=== PATIENT | male | born 1945 | race Caucasian/White ===

== ENCOUNTER 2016-05-03 21:14 | Emergency (ER) | payer OTHER | END 2016-05-03 22:25 | disposition home or self-care (01) | DX: R33.9 Retention of urine, unspecified (principal); R31.0 Gross hematuria; Z98.890 Other specified postprocedural states ==

== ENCOUNTER 2016-05-08 | Emergency (ER) | payer OTHER | END 2016-05-08 17:30 | disposition home or self-care (01) ==

== ENCOUNTER 2016-12-06 13:34 | Emergency (ER) | payer OTHER ==
[2016-12-06 13:47] VITALS: BP 129/87
[2016-12-06] MEDS ORDERED: predniSONE 20 MG TABLET PO STA (14:04)
--- NOTE | 2016-12-06 14:07 | ED Physician Documentation ---
PD HPI SKIN - Stated complaint Stated Complaint: RASH - Chief complaint Chief Complaint: Wound - History obtained from History obtained from: Patient - History of Present Illness Timing - onset: How many days ago (2) Timing - duration: Days (2) Timing - details: Gradual onset Pain level max: 0 Pain level now: 0 Location: Bodywide Quality / character: Itchy, Raised, Other (erythematous) Improved by: Benadryl Worsened by (comment): COMMENT (nothing) Associated symptoms: No: Fever, Myalgias, Joint pain, Headache, Facial swelling , Dyspnea, Abd pain, N/V/D, Urinary sx Contributing factors: Unknown (had TURP 3 days ago, now diffuse rash) Review of Systems Constitutional: denies: Fever, Chills Cardiac: denies: Chest pain / pressure Respiratory: denies: Dyspnea, Cough, Hemoptysis, Wheezing GI: denies: Abdominal Pain, Nausea, Vomiting, Diarrhea Musculoskeletal: denies: Neck pain, Back pain Neurologic: denies: Headache PD PAST MEDICAL HISTORY - Past Medical History Cardiovascular: Hypertension, High cholesterol, Other : Benign prostate hypertrophy, Retention Psych: Depression, Anxiety - Past Surgical History Past Surgical History: Yes /[employer]OUN[employer]: Other (TURP) - Present Medications Home Medications: Ambulatory Orders Medication Instructions Recorded Confirmed Apixaban [Eliquis] 5 mg PO DAILY 12/06/16 12/06/16 Atorvastatin [Lipitor] 10 mg PO DAILY 12/06/16 12/06/16 Cetirizine [ZyrTEC] 10 mg PO DAILY 12/06/16 12/06/16 DULoxetine [Cymbalta] 60 mg PO DAILY 12/06/16 12/06/16 Metoprolol Tartrate 50 mg PO DAILY 12/06/16 12/06/16 Omeprazole [PriLOSEC] 20 mg PO DAILY 12/06/16 12/06/16 Prednisone 60 mg PO DAILY #12 tablet 12/06/16 Sennosides [Senna] 1 tab PO DAILY 12/06/16 12/06/16 diphenhydrAMINE [Benadryl] 25 mg PO DAILY 12/06/16 12/06/16 oxyCODONE [Roxicodone] 5 mg PO DAILY 12/06/16 12/06/16 - Allergies Allergies/Adverse Reactions: Allergies Allergy/AdvReac Type Severity Reaction Status Date / Time gabapentin Allergy Unknown Verified 05/03/16 21:43 morphine Allergy Unknown Verified 05/03/16 21:43 vancomycin Allergy Unknown Verified 05/03/16 21:43 - Social History Does the pt smoke?: No Smoking Status: Never smoker Does the pt have substance abuse?: No - Immunizations Immunizations are current?: Yes PD ED PE NORMAL - Vitals Vital signs reviewed: Yes - General General: Alert and oriented X 3, No acute distress - HEENT HEENT: Moist mucous membranes - Neck Neck: Supple, no meningeal sign - Cardiac Cardiac: RRR - Respiratory Respiratory: No respiratory distress, Clear bilaterally - Abdomen Abdomen: Soft, Non tender, Non distended - Derm Derm: Warm and dry, Other (diffuse morbilliform rash. blanches easily. no petechiae or purpura) - Neuro Neuro: Alert and oriented X 3 - Psych Psych: Normal mood, Normal affect Results - Vitals Vitals: Vital Signs - 24 hr 12/06/16 13:42 Temperature 36.5 C Heart Rate 66 Respiratory 18 Rate Blood Pressure 129/87 H O2 Saturation 99 Oxygen O2 Source Room air PD MEDICAL DECISION MAKING - ED course Complexity details: re-evaluated patient, considered differential (No vasculitis , no purpura), d/w patient ED course: Patient is a 71-year-old male with a diffuse rash after surgery 2 days ago, unclear etiology. No new home medications. Likely related to medication received in the perioperative period. Will place on steroids for home and follow-up with his PCP. No evidence of anaphylaxis, no stridor, no wheezing. Patient counseled regarding signs and symptoms for which I believe and urgent re -evaluation would be necessary. Patient with good understanding of and agreement to plan and is comfortable going home at this time This document was made in part using voice recognition software. While efforts are made to proofread this document, sound alike and grammatical errors may occur. Departure - Departure Disposition: 01 Home, Self Care Clinical Impression: Dermatitis Condition: Good Instructions: ED Drug React Allergic Follow-Up: DANNY LALA [Primary Care Provider] - Within 1 week Prescriptions: Prednisone 60 mg PO DAILY #12 tablet Comments: Take all steroids until gone. Talk to your doctor about any perioperative medications you may have been given. Discharge Date/Time: 12/06/16 14:23
[2016-12-06] MEDS ORDERED: predniSONE 20 MG TABLET ONE (14:13)
== END 2016-12-06 14:23 | disposition home or self-care (01) ==
LOC: ED 13:34
DX: L30.9 Dermatitis, unspecified (principal); I10 Essential (primary) hypertension; E78.00 Pure hypercholesterolemia, unspecified; Z79.01 Long term (current) use of anticoagulants
CPT/HCPCS: 99283; J7512